=== PATIENT | male | born 1950 | race Two or more races ===

== ENCOUNTER 2021-05-19 08:43 | Emergency (ER) | payer OTHER ==
[~2021-05-19] VITALS: Ht 172.7 cm; Wt 68.9 kg
[2021-05-19] MEDS ORDERED: AMLODIPINE-OLM1 EAC2 PO (08:58)
[2021-05-19] MEDS ORDERED: TOPROL XL100 M1 PO (08:58)
[2021-05-19] MEDS ORDERED: DIOVAN320 MG PO (08:58)
[2021-05-19] MEDS ORDERED: ATORVASTATIN CA20 MG PO (08:59)
[2021-05-19] MEDS ORDERED: ADULT ASPIRIN81 MG PO (08:59)
[2021-05-19] MEDS ORDERED: OPTIMAL D3 M350 MCG PO (08:59)
[2021-05-19] MEDS ORDERED: OMERA CAPSULE1 EACH PO (08:59)
[2021-05-19] MEDS ORDERED: PLAVIX75 MG PO (09:00)
== END 2021-05-19 15:55 | disposition home or self-care (01) ==
LOC: ER 08:43
DX: K52.89 Other specified noninfective gastroenteritis and colitis (principal); K62.5 Hemorrhage of anus and rectum

== ENCOUNTER → 2024-08-21 | Outpatient (CLI) | payer OTHER ==
[~2024-08-21] MED LIST: ADULT ASPIRIN81 MG PO; AMLODIPINE-OLM1 EAC2 PO; ATORVASTATIN CA20 MG PO; DIOVAN320 MG PO; OMERA CAPSULE1 EACH PO; OPTIMAL D3 M350 MCG PO; PLAVIX75 MG PO; TOPROL XL100 M1 PO
== END | disposition home or self-care (01) ==
LOC: TOM 07:38
PROVIDERS: ATTEND Surgery
DX: K57.92 Diverticulitis of intestine, part unspecified, without perforation or abscess without bleeding (principal); R10.84 Generalized abdominal pain